=== PATIENT | male | born 1950 | race Two or more races ===

== ENCOUNTER → 2024-09-27 | Outpatient (CLI) | payer MEDICARE | END | disposition home or self-care (01) | LOC: RADPV 08:22 | PROVIDERS: ATTEND Specialist | DX: I65.23 Occlusion and stenosis of bilateral carotid arteries (principal); R42 Dizziness and giddiness; I70.219 Atherosclerosis of native arteries of extremities with intermittent claudication, unspecified extremity; I83.899 Varicose veins of unspecified lower extremity with other complications | CPT/HCPCS: 93880; 93925; 93970 ==